=== PATIENT | female | born 1955 | race Caucasian/White ===

== ENCOUNTER → 2016-05-19 | Outpatient (CLI) | payer OTHER ==
[~2016-05-19] MED LIST: ADVAIR; ALBUTEROL17 G1; ATENOLOL PO; COMBIVENT INH14.7 GM INH; LISINOPRIL PO; VISTARIL PO; ZANTAC PO
--- NOTE | ~2016-05-19 | CT57 ---
[facility] A Service of [facility] & [facility] RADIOLOGY TEXT RESULTS PATIENT: AIRAM MULLER [facility]: [facility] : 53 UNIT #: [id number] AGE: [address]: Melanie Dasilva SEX: F ORDER DR: [id number] [facility] [address] [facility] [facility] [place], [place] [address] [id number] O MR#: [id number] Acc #: [id number] NAME: AIRAM MULLER : 1955 SEX: F STUDY DATE/TIME: 05/19/2016 UNIT: [facility] ROOM: STUDY DESCRIPTION: CT Chest Wo Cont Attending Physician: Melanie Dasilva A.P.R.N. Referring Physician: Melanie Dasilva A.P.R.N. Ordering Physician: Melanie Dasilva A.P.R.N. MEDICAL IMAGING REPORT This report is preliminary unless electronic signature is present EXAM CT chest without contrast 05/19/2016 at 1042 hours HISTORY History of COPD with exacerbation. Followup lung nodule. History of breast carcinoma with prior chemo and radiation therapy. COMPARISON CT abdomen and pelvis 12/31/2006. There is no prior chest CT for comparison. TECHNIQUE Helical non-contrasted images were obtained from the thoracic inlet through the adrenal glands. Sagittal and coronal reconstructions were performed. Total exam DLP 567 mGy/cm. This CT exam was performed with one or more of the following radiation dose reduction techniques: automatic exposure control, adjustment of mA and/or kV according to patient size, and iterative reconstruction. FINDINGS Images through the thoracic inlet demonstrate no thyroid mass or enlargement. There is no adenopathy. Images through the chest demonstrate normal caliber aorta. Cardiac chambers and pericardium are normal. The esophagus is normal. Again demonstrated are densely calcified left hilar infrahilar lymph nodes with a large densely calcified benign granuloma in the left lower lobe. These findings are stable. The patient has fairly diffuse jjgrwatv-gm-umoaxs centrilobular emphysema with small blebs at the upper lungs. No large bullae are seen. There are no suspicious noncalcified nodules or infiltrates. STS. [facility] A Service of [facility] & [facility] RADIOLOGY TEXT RESULTS PATIENT: AIRAM MULLER LOCATION: [facility] : 53 UNIT #: [id number] AGE: [address]: Melanie Dasilva SEX: F ORDER DR: Images through the lower lobes demonstrate mild peribronchiolar wall thickening, hxgpw-xdimjpg-hvuc-left left lower lobe, suggesting an element of chronic bronchitis. There is no definite mucus plugging. Bone window images demonstrate no bone lesions or fractures. IMPRESSION 1. There is underlying significant emphysematous change with benign calcified nodes and calcified granuloma at the left lung base. There are no suspicious nodules. 2. There is mild peribronchiolar wall thickening in both lower lobe suggesting an element of bronchitis which may be chronic. There is no definite mucus plugging or infection. 3. There is no evidence of metastatic disease in the chest. Dictated by... Keli Mcmahan M.D. THIS IS AN ELECTRONICALLY VERIFIED REPORT Keli Mcmahan M.D. at 05/20/2016 9:27 AM Dario TD: 05/19/2016 17:23 JOB #: [id number] MEDICAL IMAGING REPORT COPY
== END | disposition home or self-care (01) ==
LOC: CCAT 09:57
DX: R91.1 Solitary pulmonary nodule (principal); J43.9 Emphysema, unspecified; J84.10 Pulmonary fibrosis, unspecified; R91.8 Other nonspecific abnormal finding of lung field; Z72.0 Tobacco use
CPT/HCPCS: 71250